=== PATIENT | male | born 1995 | race American Indian/Alaskan Native ===

== ENCOUNTER 2018-01-31 17:23 | Emergency (ER) | payer MEDICAID, OTHER, SELFPAY ==
[2018-01-31 17:58] VITALS: BP 107/63; PULSE 69; RESP 16; TEMP 37.2; O2SAT 97; BMI 27.1
[2018-01-31] MEDS: IBUPROFEN 400 MG TABLET 800 MG PO (18:08)
--- NOTE | 2018-03-03 06:03 | ED.BACK ---
HPI - Back Pain/Injury General Chief Complaint: Back Pain/Injury Stated Complaint: BACK PAIN AND HURTS TO BREATH History of Present Illness HPI Narrative: Patient left AMA prior to evaluation in the emergency department. Chart created and signed due to EMR requirements. Related Data Home Medications Medication Instructions Recorded Confirmed ALBUTEROL (PROVENTIL INHALER) IH PRN #0 11/15/11 Loratadine (#ALLERGY RELIEF) 10 mg PO PRN #0 11/15/11 Previous Rx's Medication Instructions Recorded ibuprofen 800 mg PO Q6HP PRN #40 tab 04/19/16 Allergies Allergy/AdvReac Type Severity Reaction Status Date / Time No Known Drug Allergies Allergy Verified 01/31/18 18:04 [facility] Social History Smoking Status: Current every day smoker Exam Initial Vital Signs Initial Vital Signs: Vital Signs Temperature 99.0 F 01/31/18 17:58 Pulse Rate 69 01/31/18 17:58 Respiratory Rate 16 01/31/18 17:58 Blood Pressure 107/63 01/31/18 17:58 Pulse Oximetry 97 01/31/18 17:58 Course Orders Ordered: Discontinued Medications Ibuprofen (Advil) 800 mg PO NOW ONE Stop: 01/31/18 18:09 Last Admin: 01/31/18 18:08 Dose: 800 mg Discharge Plan Departure Patient Disposition: Left Without Being Seen Discharge Date/Time: 01/31/18 18:32 Interventions: ED Discharge Assessment Last Done: 01/31/18 18:30
--- NOTE | 2018-03-03 06:09 | ED_ITS ---
HPI - Back Pain/Injury General Chief Complaint: Back Pain/Injury Stated Complaint: BACK PAIN AND HURTS TO BREATH History of Present Illness HPI Narrative: Patient left AMA prior to evaluation in the emergency department. Chart created and signed due to EMR requirements. Related Data Home Medications Medication Instructions Recorded Confirmed ALBUTEROL (PROVENTIL INHALER) IH PRN #0 11/15/11 Loratadine (#ALLERGY RELIEF) 10 mg PO PRN #0 11/15/11 Previous Rx's Medication Instructions Recorded ibuprofen 800 mg PO Q6HP PRN #40 tab 04/19/16 Allergies Allergy/AdvReac Type Severity Reaction Status Date / Time No Known Drug Allergies Allergy Verified 01/31/18 18:04 [facility] Social History Smoking Status: Current every day smoker Exam Initial Vital Signs Initial Vital Signs: Vital Signs Temperature 99.0 F 01/31/18 17:58 Pulse Rate 69 01/31/18 17:58 Respiratory Rate 16 01/31/18 17:58 Blood Pressure 107/63 01/31/18 17:58 Pulse Oximetry 97 01/31/18 17:58 Course Orders Ordered: Discontinued Medications Ibuprofen (Advil) 800 mg PO NOW ONE Stop: 01/31/18 18:09 Last Admin: 01/31/18 18:08 Dose: 800 mg Discharge Plan Departure Patient Disposition: Left Without Being Seen Discharge Date/Time: 01/31/18 18:32 Interventions: ED Discharge Assessment Last Done: 01/31/18 18:30
== END 2018-01-31 18:32 | disposition left against medical advice (07) ==
PROVIDERS: Emergency Provider Emergency Medicine
DX: M54.9 Dorsalgia, unspecified (principal)
CPT/HCPCS: 99281; 99282

== ENCOUNTER 2018-05-28 17:59 | Emergency (ER) | payer MEDICAID, OTHER, SELFPAY ==
[2018-05-28 18:14] VITALS: BP 144/66; PULSE 103; RESP 20; TEMP 37.8; O2SAT 96; BMI 27.8
[2018-05-28 20:28] VITALS: BP 141/70; PULSE 106; RESP 18; TEMP 37.2; O2SAT 98
--- NOTE | 2018-05-28 20:39 | ED.ABDPAIN ---
HPI - Abdominal Pain <Sierra Hoffmann PA-C - Last Filed: 05/28/18 22:32> General Chief Complaint: Abdominal Pain Stated Complaint: ABD PAIN,HARD TO BREATH Time Seen by Provider: 05/28/18 20:39 Source: patient and family Mode of arrival: ambulatory Limitations: no limitations History of Present Illness HPI narrative: This 23-year-old male comes in due to one-week history of generalized abdominal pressure and bloating. He describes this as mostly ?annoying?, but not painful to keep him in a from eating or activity. Nurses noted that he appeared to be eating and drinking comfortably in the waiting room and that initially he had a fever however he was drinking hot liquid. He states that he vomited once days ago, does not currently have any nausea or vomiting. There are no exacerbating or alleviating features to his discomfort such as activity or food. He denies any trauma or new exercises. He states he has been having regular bowel movements including today with no blood in the stools. He denies any urinary symptoms or hematuria. He denies any fevers. He states that his allergies and asthma have been worse lately however he states that his inhaler does help when he uses it. He denies chest pain. He denies any new pain or swelling in the extremities, rashes, or other new complaints on systems review. He states that he came in tonight due to his grandmother being concerned Related Data Home Medications Medication Instructions Recorded Confirmed ALBUTEROL (PROVENTIL INHALER) IH PRN #0 11/15/11 Loratadine (#ALLERGY RELIEF) 10 mg PO PRN #0 11/15/11 Previous Rx's Medication Instructions Recorded ibuprofen 800 mg PO Q6HP PRN #40 tab 04/19/16 Allergies Allergy/AdvReac Type Severity Reaction Status Date / Time No Known Drug Allergies Allergy Verified 01/31/18 18:04 Review of Systems <Sierra Hoffmann PA-C - Last Filed: 05/28/18 22:32> Review of Systems All systems reviewed & are unremarkable except as noted in HPI and below Exam <Sierra Hoffmann PA-C - Last Filed: 05/28/18 22:32> Narrative Exam Narrative: GENERAL APPEARANCE: Patient sitting comfortably, in no distress. HEENT: PERRL, EOMI, no scleral icterus NECK: Supple LUNGS: Clear to auscultation bilaterally. HEART: Rate and rhythm regular, normal S1 and S2, no S3 or S4. ABDOMEN: Soft, nontender, mild distention, bowel sounds present x 4 quadrants, no masses palpable, no hepatosplenomegaly. EXTREMITIES: No edema, no cyanosis DERMATOLOGIC: No jaundice or exanthem NEUROLOGIC: Alert and oriented with normal speech and coordination Initial Vital Signs Initial Vital Signs: Vital Signs Temperature 100.0 F H 05/28/18 18:14 Pulse Rate 103 H 05/28/18 18:14 Respiratory Rate 20 05/28/18 18:14 Blood Pressure 144/66 H 05/28/18 18:14 Pulse Oximetry 96 05/28/18 18:14 <DO Joe Souza Last Filed: 05/29/18 00:25> Initial Vital Signs Initial Vital Signs: Vital Signs Temperature 100.0 F H 05/28/18 18:14 Pulse Rate 103 H 05/28/18 18:14 Respiratory Rate 20 05/28/18 18:14 Blood Pressure 144/66 H 05/28/18 18:14 Pulse Oximetry 96 05/28/18 18:14 Course <Sierra Hoffmann PA-C - Last Filed: 05/28/18 22:32> Additional Information: Patient's exam is benign today. He describes mild discomfort without vomiting, anorexia, fever or specific complaints. Advised f/u on labwork next week with PCP and return if any acutely worsening sx and he and grandmother are agreeable. Orders Ordered: ED Orders 05/28/18 21:08 Complete Blood Count AUTO DIFF Stat Comprehensive Metabolic Panel Stat Lipase Stat 05/28/18 21:35 Urine Microscopic Stat Discontinued Medications Al Hydrox/Mg Hydrox/Simethicone 20 ml/ Lidocaine HCl 15 ml 0 ml PO NOW ONE Stop: 05/28/18 20:59 Last Admin: 05/28/18 21:09 Dose: 20 ml Vital Signs - 8 hr 05/28/18 18:14 05/28/18 20:28 05/28/18 22:07 Temperature 100.0 F H 99.0 F Pulse Rate 103 H 106 H 106 H Respiratory Rate 20 18 17 Blood Pressure 144/66 H Blood Pressure [Left Arm] 141/70 H 142/80 H Pulse Oximetry 96 98 97 <Ronny Rapp DO - Last Filed: 05/29/18 00:25> Orders Ordered: ED Orders 05/28/18 21:08 Complete Blood Count AUTO DIFF Stat Comprehensive Metabolic Panel Stat Lipase Stat 05/28/18 21:35 Urine Microscopic Stat Discontinued Medications Al Hydrox/Mg Hydrox/Simethicone 20 ml/ Lidocaine HCl 15 ml 0 ml PO NOW ONE Stop: 05/28/18 20:59 Last Admin: 05/28/18 21:09 Dose: 20 ml Vital Signs - 8 hr 05/28/18 18:14 05/28/18 20:28 05/28/18 22:07 Temperature 100.0 F H 99.0 F Pulse Rate 103 H 106 H 106 H Respiratory Rate 20 18 17 Blood Pressure 144/66 H Blood Pressure [Left Arm] 141/70 H 142/80 H Pulse Oximetry 96 98 97 MDM - Abdominal Pain <Sierra Hoffmann PA-C - Last Filed: 05/28/18 22:32> Lab Data Result diagrams: 05/28/18 21:08 05/28/18 21:08 Lab Results 05/28/18 05/28/18 05/28/18 Range/Units 21:08 21:08 21:35 WBC 7.9 (4.5-11.0) X10^3/uL RBC 3.81 L (4.5-5.9) X10^6/uL Hgb 12.4 L (13.5-17.5) g/dL Hct 35.7 L (41-53) % MCV 93.7 (80-100) fL MCH 32.6 (26-34) PG MCHC 34.8 (30-36) % RDW 16.4 H (11.6-14.8) % Plt Count 284 (150-400) X10^3/uL Neut % (Auto) 52.9 (50-75) % Lymph % (Auto) 33.4 (25-40) % [place] % (Auto) 8.3 (3-14) % Eos % (Auto) 4.9 H (2-4) % Baso % (Auto) 0.5 (0-2) % Neut # (Auto) 4200 (8621-7022) /uL Sodium 141 (137-145) mmol/L Potassium 4.0 (3.4-5.1) mmol/L Chloride 103 (98-107) mmol/L Carbon Dioxide 28 (22-32) mmol/L BUN 22 H (9-20) mg/dL Creatinine 0.90 (0.66-1.25) mg/dL Estimated GFR > 60.0 (>60) mL/min BUN/Creatinine Ratio 24.4 H (6-22) Glucose 95 (70-100) mg/dL Calcium 8.6 (8.4-10.2) mg/dL Total Bilirubin 0.2 (0.2-1.3) mg/dL AST 74 H (17-59) IU/L ALT 118 H (21-72) IU/L Alkaline Phosphatase 52 (38-126) U/L Total Protein 7.0 (6.3-8.2) g/dL Albumin 4.2 (3.5-5.0) g/dL Globulin 2.8 (1.7-4.1) g/dL Albumin/Globulin Ratio 1.5 (1.0-2.8) Lipase 31 (23-300) U/L Urine RBC 0-1/hpf (0-5/HPF) Urine WBC 0-1/hpf (0-5/HPF) Urine Bacteria None seen (None) Ur Culture Indicated? Cult not indicated Micro UA Comment Not Reportable Point of care testing: Urine Dip Bedside Urine Glucose Negative Bedside Urine Bilirubin - Negative Bedside Urine Ketone - Negative Urine Specific [place] 1.025 Bedside Urine Occult Blood - Negative Bedside Urine pH 6.0 Bedside Urine Protein +/- 15 Bedside Urine Urobilinogen - Negative Bedside Urine Nitrite - Negative Bedside Urine Leukocytes - Negative Esterase <Ronny Rapp, DO - Last Filed: 05/29/18 00:25> Lab Data Lab Results 05/28/18 05/28/18 05/28/18 Range/Units 21:08 21:08 21:35 WBC 7.9 (4.5-11.0) X10^3/uL RBC 3.81 L (4.5-5.9) X10^6/uL Hgb 12.4 L (13.5-17.5) g/dL Hct 35.7 L (41-53) % MCV 93.7 (80-100) fL MCH 32.6 (26-34) PG MCHC 34.8 (30-36) % RDW 16.4 H (11.6-14.8) % Plt Count 284 (150-400) X10^3/uL Neut % (Auto) 52.9 (50-75) % Lymph % (Auto) 33.4 (25-40) % [place] % (Auto) 8.3 (3-14) % Eos % (Auto) 4.9 H (2-4) % Baso % (Auto) 0.5 (0-2) % Neut # (Auto) 4200 (4171-8047) /uL Sodium 141 (137-145) mmol/L Potassium 4.0 (3.4-5.1) mmol/L Chloride 103 (98-107) mmol/L Carbon Dioxide 28 (22-32) mmol/L BUN 22 H (9-20) mg/dL Creatinine 0.90 (0.66-1.25) mg/dL Estimated GFR > 60.0 (>60) mL/min BUN/Creatinine Ratio 24.4 H (6-22) Glucose 95 (70-100) mg/dL Calcium 8.6 (8.4-10.2) mg/dL Total Bilirubin 0.2 (0.2-1.3) mg/dL AST 74 H (17-59) IU/L ALT 118 H (21-72) IU/L Alkaline Phosphatase 52 (38-126) U/L Total Protein 7.0 (6.3-8.2) g/dL Albumin 4.2 (3.5-5.0) g/dL Globulin 2.8 (1.7-4.1) g/dL Albumin/Globulin Ratio 1.5 (1.0-2.8) Lipase 31 (23-300) U/L Urine RBC 0-1/hpf (0-5/HPF) Urine WBC 0-1/hpf (0-5/HPF) Urine Bacteria None seen (None) Ur Culture Indicated? Cult not indicated Micro UA Comment Not Reportable Point of care testing: Urine Dip Bedside Urine Glucose Negative Bedside Urine Bilirubin - Negative Bedside Urine Ketone - Negative Urine Specific [place] 1.025 Bedside Urine Occult Blood - Negative Bedside Urine pH 6.0 Bedside Urine Protein +/- 15 Bedside Urine Urobilinogen - Negative Bedside Urine Nitrite - Negative Bedside Urine Leukocytes - Negative Esterase Discharge Plan Departure Patient Disposition: Home Clinical Impression: Abdominal bloating Discharge Date/Time: 05/28/18 22:22 Interventions: ED Discharge Assessment Last Done: 05/28/18 22:21 Instructions: DI for Abdominal Pain-Adult Activity Restrictions/Additional Instructions: Return if you have acutely worsening symptoms as we talked about, or new symptoms such as fever or profuse vomiting. You can try over the counter simethicone (gas x) as needed to see if this is helpful for you, and eat low residue, non-fatty foods for now. Call your clinic on Wednesday to arrange a follow up exam as they will likely want to repeat your labs (your liver function tests are somewhat elevated and you have mild anemia), and they may want to do imaging studies if you are not better. Prescriptions: No Action Loratadine (#ALLERGY RELIEF) 10 mg PO PRN Qty: 0 RF: 0 ALBUTEROL (PROVENTIL INHALER) IH PRN Qty: 0 RF: 0 ibuprofen 800 MG tablet 800 mg PO Q6HP PRNQty: 40 RF: 0 Referrals: Shanon Bay MD [Non-Staff] - <Ronny Rapp DO - Last Filed: 05/29/18 00:25> Cosign ED Attending Elverature Attestation: I was available for consultation during this patient's emergency department encounter
[2018-05-28] MEDS: MAG HYDROX/ALUMINUM/SIMETH SUS 20 ML, LIDOCAINE VISCOUS 2% 15 ML PO (21:09)
[2018-05-28 21:15] LABS: Add Manual Diff / Slide Review NO; Basophils Percent Auto 0.5 % (0-2); Eosinophils Percent Auto 4.9 % (2-4); Hematocrit 35.7 % (41-53); Hemoglobin 12.4 g/dL (13.5-17.5); Lymphocytes Percent Auto 33.4 % (25-40); Mean Corpuscular HGB Conc 34.8 % (30-36); Mean Corpuscular Hemoglobin 32.6 PG (26-34); Mean Corpuscular Volume 93.7 fL (80-100); Monocytes Percent Auto 8.3 % (3-14); Neutrophils Absolute Auto 4200 /uL (3000-5900); Neutrophils Percent Auto 52.9 % (50-75); Platelet Count 284 X10^3/uL (150-400); Red Blood Cell Count 3.81 X10^6/uL (4.5-5.9); Red Cell Distribution Width 16.4 % (11.6-14.8); White Blood Cell Count 7.9 X10^3/uL (4.5-11.0)
[2018-05-28 21:23] LABS: Alanine Aminotransferase 118 IU/L (21-72); Albumin 4.2 g/dL (3.5-5.0); Albumin Globulin Ratio 1.5 (1.0-2.8); Alkaline Phosphatase 52 U/L (38-126); Aspartate Aminotransferase 74 IU/L (17-59); BUN Creatinine Ratio 24.4 (6-22); Bilirubin Total 0.2 mg/dL (0.2-1.3); Blood Urea Nitrogen 22 mg/dL (9-20); Calcium 8.6 mg/dL (8.4-10.2); Carbon Dioxide 28 mmol/L (22-32); Chloride 103 mmol/L (98-107); Estimated Glomerular Filt Rate > 60.0 mL/min (>60); Globulin 2.8 g/dL (1.7-4.1); Glucose 95 mg/dL (70-100); HEMOLYSIS < 15 (0-50); Lipase 31 U/L (23-300); Sodium 141 mmol/L (137-145)
[2018-05-28 21:47] LABS: Bacteria Urine None Seen
[2018-05-28 21:57] LABS: RBC Urine 0-1/HPF (0-5/HPF); WBC Urine 0-1/HPF (0-5/HPF)
[2018-05-28 21:58] LABS: Culture Indicated Urine Cult Not Indicated
[2018-05-28 22:07] VITALS: BP 142/80; PULSE 106; RESP 17; O2SAT 97
== END 2018-05-28 22:22 | disposition home or self-care (01) ==
PROVIDERS: Emergency Provider Internal Medicine
DX: R14.0 Abdominal distension (gaseous) (principal)
CPT/HCPCS: 36415; 80053; 81003; 81015; 83690; 85025; 99283

== ENCOUNTER 2018-08-26 21:12 | Emergency (ER) | payer OTHER, SELFPAY ==
[2018-08-26 21:20] VITALS: BP 123/76; PULSE 71; RESP 15; TEMP 36.6; O2SAT 100; BMI 27.5
--- NOTE | 2018-08-26 21:21 | DI.RAD.S_ITS ---
PROCEDURE: XR KNEE LT 3V INDICATIONS: left knee injury,fell onto it TECHNIQUE: 3 views of the knee were acquired. COMPARISON: None. FINDINGS: Bones: No fractures or dislocations. No suspicious bony lesions. No significant patellar subluxation. Soft tissues: No joint effusion. No suspicious soft tissue calcifications. IMPRESSION: No acute left knee fracture or dislocation. Dictated by: Angelo Mcdonough M.D. on 08/26/2018 at 21:44 Approved by: Angelo Mcdonough M.D. on 08/26/2018 at 21:44
--- NOTE | 2018-08-26 21:36 | PC.NURSE ---
pt reports twisting on knee at work and feeling some pain start. pain increased to 10/10 now. pt is calmly sitting on stretcher talking on phone. pt denies other symptoms.
--- NOTE | 2018-08-26 21:41 | ED.LOWEXIN ---
HPI - Extremity Injury (Lower) General Chief Complaint: Extremity Injury, Lower Stated Complaint: LEFT KNEE INJURY Time Seen by Provider: 08/26/18 21:40 Source: patient Mode of arrival: ambulatory Limitations: no limitations History of Present Illness HPI Narrative: Patient is a 23-year-old male here for evaluation of left knee injury. Patient states that he was at work when he slipped on a tile floor landing on his left side. Had pain in his knee since then. Has not tried anything for it prior to arrival. Ambulated into the emergency department but was limping. No prior injury to the knee. Related Data Home Medications Medication Instructions Recorded Confirmed ALBUTEROL (PROVENTIL INHALER) IH PRN #0 11/15/11 Loratadine (#ALLERGY RELIEF) 10 mg PO PRN #0 11/15/11 Previous Rx's Medication Instructions Recorded ibuprofen 800 mg PO Q6HP PRN #40 tab 04/19/16 Allergies Allergy/AdvReac Type Severity Reaction Status Date / Time No Known Drug Allergies Allergy Verified 08/26/18 21:20 Review of Systems ENT Ears, Nose, Mouth, and Throat: Denies neck pain Cardiovascular Denies chest pain and Denies dyspnea Respiratory Denies dyspnea Gastrointestinal Gastrointestinal: Denies abdominal pain Musculoskeletal Denies myalgias, Reports arthralgias (Left knee), Denies joint swelling, Denies neck pain and Denies tingling Integumentary/Breasts Comments: Bruise in the left knee Neurologic Denies tingling and Denies paresthesias Hematologic/Lymphatic Comments: Not on anticoagulation PFSH Medical History Asthma (Chronic) Pollen allergies (Chronic) Surgical History S/P appy (Resolved) Social History Smoking Status: Current every day smoker Exam Initial Vital Signs Initial Vital Signs: Vital Signs Temperature 97.8 F 08/26/18 21:20 Pulse Rate 71 08/26/18 21:20 Respiratory Rate 15 08/26/18 21:20 Blood Pressure 123/76 08/26/18 21:20 Pulse Oximetry 100 08/26/18 21:20 Const General: cooperative, healthy appearing, comfortable, well developed, well groomed and No acute distress Orientation: alert, awake and oriented x3 HENMT Head: normal to inspection and normocephalic Resp Effort & Inspection: normal respiratory effort Cardio Rate: regular rate Skin Other: Small 3 cm bruise on the lateral aspect of the left knee. Just inferior to the joint line. Neuro General: alert and awake Sensory Exam: no sensory deficits noted Extrem Other: Tenderness palpation in the left knee along the lateral joint line. No medial joint line tenderness. No quadriceps or patellar tendon tenderness. ACL MCL PCL and LCL are all intact with functional testing. Course Orders Ordered: ED Orders 08/26/18 21:21 XR knee LT 3V Stat Discontinued Medications Ibuprofen (Advil) 800 mg PO NOW ONE Stop: 08/26/18 21:51 Last Admin: 08/26/18 21:58 Dose: 800 mg Vital Signs - 8 hr 08/26/18 21:20 Temperature 97.8 F Pulse Rate 71 Respiratory Rate 15 Blood Pressure 123/76 Pulse Oximetry 100 MDM - Extremity Injury (Lower) Imaging Data X-ray knee: Radiologist's impression: PROCEDURE: XR KNEE LT 3V INDICATIONS: left knee injury,fell onto it TECHNIQUE: 3 views of the knee were acquired. COMPARISON: None. FINDINGS: Bones: No fractures or dislocations. No suspicious bony lesions. No significant patellar subluxation. Soft tissues: No joint effusion. No suspicious soft tissue calcifications. IMPRESSION: No acute left knee fracture or dislocation. Dictated by: Angelo Mcdonough M.D. on 08/26/2018 at 21:44 Approved by: Angelo Mcdonough M.D. on 08/26/2018 at 21:44 [facility] Narrative Medical decision making narrative: Neurovascular intact. No fractures on the x-ray. Tenderness along the outside of the knee which could very well be secondary to a contusion. No restrictions on activity. Offer an José Luis bandage the patient declined. Offer crutches the patient declined. Patient given return precautions. She expressed understanding agreement plan. Discharge Plan Departure Patient Disposition: Home Clinical Impression: Left knee sprain, Contusion of knee, left Discharge Date/Time: 08/26/18 22:03 Interventions: ED Discharge Assessment Last Done: 08/26/18 22:02 Instructions: DI for Contusion, How To Perform RICE (Rest, Ice, Compress, Elevate) Activity Restrictions/Additional Instructions: Your activity is only limited by the discomfort you're having. You can take ibuprofen as directed. You can use a knee brace or José Luis bandage like we discussed. Return to the emergency department for any new symptoms. If your symptoms continue then contact your primary care doctor to discuss the indications for an MRI Prescriptions: No Action Loratadine (#ALLERGY RELIEF) 10 mg PO PRN Qty: 0 RF: 0 ALBUTEROL (PROVENTIL INHALER) IH PRN Qty: 0 RF: 0 ibuprofen 800 MG tablet 800 mg PO Q6HP PRNQty: 40 RF: 0
[2018-08-26] MEDS: IBUPROFEN 400 MG TABLET 800 MG PO (21:58)
== END 2018-08-26 22:03 | disposition home or self-care (01) ==
PROVIDERS: Emergency Provider Emergency Medicine
DX: S83.92XA Sprain of unspecified site of left knee, initial encounter (principal); S80.02XA Contusion of left knee, initial encounter; Y99.0 Civilian activity done for income or pay
CPT/HCPCS: 73562; 99282; 99283

== ENCOUNTER 2018-09-01 22:46 | Emergency (ER) | payer MEDICAID, OTHER, SELFPAY ==
[2018-09-01 22:56] VITALS: BP 128/87; PULSE 77; RESP 15; TEMP 37.2; O2SAT 98; BMI 27.5
--- NOTE | 2018-09-01 23:14 | ED.MALEGU ---
HPI - Male Genitourinary General Chief complaint: Urogenital-Male Stated complaint: PENILE INJURY Time Seen by Provider: 09/01/18 22:56 Source: patient Mode of arrival: ambulatory Limitations: no limitations History of Present Illness HPI Narrative: 23-year-old male here for evaluation of injury to his penis. He states that just prior to arrival he was attempting to have intercourse with his girlfriend. He states that he was ?having trouble getting hit in ?he states that he sustained injury to his penis. He has never had anything like this before. Has tried nothing for prior to arrival. Related Data Home Medications Medication Instructions Recorded Confirmed ALBUTEROL (PROVENTIL INHALER) IH PRN #0 11/15/11 Loratadine (#ALLERGY RELIEF) 10 mg PO PRN #0 11/15/11 Previous Rx's Medication Instructions Recorded ibuprofen 800 mg PO Q6HP PRN #40 tab 04/19/16 Allergies Allergy/AdvReac Type Severity Reaction Status Date / Time No Known Drug Allergies Allergy Verified 09/01/18 22:56 Review of Systems Gastrointestinal Gastrointestinal: Denies abdominal pain Genitourinary Denies hematuria, Reports genital pain and Denies testicular pain Musculoskeletal Denies myalgias and Denies arthralgias Integumentary/Breasts Denies rash Comments: Bleeding around his penis Hematologic/Lymphatic Denies easy bleeding and Denies easy bruising [facility] Medical History Asthma (Chronic) Pollen allergies (Chronic) Surgical History S/P appy (Resolved) Social History Smoking Status: Current every day smoker Exam Initial Vital Signs Initial Vital Signs: Vital Signs Temperature 99.0 F 09/01/18 22:56 Pulse Rate 77 09/01/18 22:56 Respiratory Rate 15 09/01/18 22:56 Blood Pressure 128/87 09/01/18 22:56 Pulse Oximetry 98 09/01/18 22:56 Const General: cooperative, well developed, well groomed and No acute distress Orientation: alert, awake and oriented x3 Resp Effort & Inspection: normal respiratory effort Testes: normal Other: Circumcised Patient with what appears to be a small tear in the frenulum on the underside of his penis around the base of the glans. No active bleeding. Skin Other: Small tear in the frenulum on the underside of the penis Neuro General: alert and awake Course Vital Signs - 8 hr 09/01/18 22:56 Temperature 99.0 F Pulse Rate 77 Respiratory Rate 15 Blood Pressure 128/87 Pulse Oximetry 98 MDM - Male Genitourinary Lab Data Urine Dip Bedside Urine Glucose Negative Bedside Urine Bilirubin - Negative Bedside Urine Ketone - Negative Urine Specific [place] 1.025 Bedside Urine Occult Blood - Negative Bedside Urine pH 6.0 Bedside Urine Protein - Negative Bedside Urine Urobilinogen - Negative Bedside Urine Nitrite - Negative Bedside Urine Leukocytes - Negative Esterase MDM Narrative Medical decision making narrative: Patient with a small tear in the frenulum on the underside of the penis. There is no indication for suturing of this injury. There is no signs of a penile fracture. Is not actively bleeding. Had a discussion with the patient regarding this injury. Will treat with conservative measures currently. He was given return precautions. He expressed understanding and agreement with plan. Discharge Plan Departure Patient Disposition: Home Clinical Impression: Injury to penis Discharge Date/Time: 09/02/18 00:01 Interventions: ED Discharge Assessment Last Done: 09/02/18 00:00 Instructions: DI for Abrasion Activity Restrictions/Additional Instructions: Just keep the area clean. You can put bacitracin over the area. Supportive clothing may help. Ice may also improve the symptoms. I recommend that you avoid sexual activity into the area has healed. Call your primary care doctor for a follow-up. Return to the emergency department for any new or worsening symptoms Prescriptions: No Action Loratadine (#ALLERGY RELIEF) 10 mg PO PRN Qty: 0 RF: 0 ALBUTEROL (PROVENTIL INHALER) IH PRN Qty: 0 RF: 0 ibuprofen 800 MG tablet 800 mg PO Q6HP PRNQty: 40 RF: 0
== END 2018-09-02 00:01 | disposition home or self-care (01) ==
PROVIDERS: Emergency Provider Emergency Medicine
DX: S39.94XA Unspecified injury of external genitals, initial encounter (principal); W50.0XXA Accidental hit or strike by another person, initial encounter
CPT/HCPCS: 81003; 99282; 99283

== ENCOUNTER 2024-06-29 20:05 | Emergency (ER) | payer MEDICAID, OTHER, SELFPAY ==
[2024-06-29] VITALS (7 sets, daily range): BP systolic 120–133; BP diastolic 82–100; PULSE 96–109; RESP 13–18; TEMP 36.7–36.8; O2SAT 95–98; BMI 25.1
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
--- NOTE | 2024-06-29 20:34 | EKG_ITS ---
Located Within [facility] [address] [place] [address] Test Date: 2024-06-29 Pat Name: Evens Prado Department: Located Within [facility] Room: Gender: Male [employer] Operator: : 1995 Requested By: Order Number: [id number] Reading MD: Joe Ramos Measurements Intervals [place] Rate: 107 P: 61 TN: 166 QRS: 62 QRSD: 110 T: 42 QT: 354 QTc: 472 Interpretive Statements Sinus tachycardia Electronically Signed On 07-03-2024 15:26:43 PDT by Joe Ramos
[2024-06-29 20:53] LABS: Add Manual Diff / Slide Review NO; Basophils Absolute Auto 0 /uL (0-100); Basophils Percent Auto 0.4 % (0-2); Eosinophils Absolute Auto 200 /uL (0-450); Eosinophils Percent Auto 1.3 % (2-4); Hematocrit 41.2 % (41-53); Hemoglobin 14.2 g/dL (13.5-17.5); Lymphocytes Absolute Auto 1800 /uL (1100-4500); Mean Corpuscular HGB Conc 34.3 % (30-36); Mean Corpuscular Hemoglobin 29.5 PG (26-34); Mean Corpuscular Volume 85.8 fL (80-100); Monocytes Absolute Auto 700 /uL (0-900); Monocytes Percent Auto 5.4 % (3-14); Neutrophils Absolute Auto 9400 /uL (1500-7000); Neutrophils Percent Auto 77.9 % (50-75); Platelet Count 421 X10^3/uL (150-400); Red Cell Distribution Width 12.8 % (11.6-14.8); White Blood Cell Count 12.1 X10^3/uL (4.5-11.0)
[2024-06-29 21:06] LABS: COVID19 -Nasal RAPID Negative (Negative)
[2024-06-29 21:19] LABS: Alanine Aminotransferase 14 IU/L (<50); Albumin 4.3 g/dL (3.5-5.0); Albumin Globulin Ratio 1.3 (1.0-2.8); Alkaline Phosphatase 73 U/L (38-126); Aspartate Aminotransferase 26 IU/L (17-59); BUN Creatinine Ratio 15.4 (6-22); Bilirubin Total 0.4 mg/dL (0.2-1.3); Blood Urea Nitrogen 12 mg/dL (9-20); Calcium 8.8 mg/dL (8.4-10.2); Carbon Dioxide 29 mmol/L (22-32); Chloride 103 mmol/L (98-107); Estimated Glomerular Filt Rate > 60 mL/min (>60); Ethanol (ETOH) < 10 mg/dL; Globulin 3.2 g/dL (1.7-4.1); Glucose 98 mg/dL (70-100); HEMOLYSIS < 15 (0-50); Potassium 3.4 mmol/L (3.4-5.1); Sodium 140 mmol/L (137-145); Total Protein 7.5 g/dL (6.3-8.2)
== END 2024-06-29 21:52 | disposition home or self-care (01) ==
PROVIDERS: Emergency Provider Emergency Medicine
DX: T75.1XXA Unspecified effects of drowning and nonfatal submersion, initial encounter (principal); R00.0 Tachycardia, unspecified; T68.XXXA Hypothermia, initial encounter; Z00.8 Encounter for other general examination; T75.89XA Other specified effects of external causes, initial encounter
CPT/HCPCS: 36415; 80053; 80320; 85025; 87635; 93005; 99283; 99284